=== PATIENT | female | born 1975 | race Caucasian/White ===

== ENCOUNTER 2023-01-16 08:27 | Day surgery (SDC) | payer BC, OTHER ==
[~2023-01-16] VITALS: Ht 154.9 cm; Wt 50.8 kg
[~2023-01-16 08:27] MED LIST: CVS1CAP2 PO; NS 1,000 ML IV ONE
[2023-01-16] MEDS ORDERED: propofoL 200 MG/20 ML VIAL As Ordered ONE ×3 (09:42→10:07)
[2023-01-16 10:23] VITALS: TEMP 98.3
[2023-01-16 10:38] VITALS: BP 117/64; O2SAT 100
== END 2023-01-16 10:45 | disposition home or self-care (01) ==
LOC: M OPP 08:27
PROVIDERS: ATTEND Internal Medicine Gastroenterology
DX: Z12.11 Encounter for screening for malignant neoplasm of colon (principal); Q43.8 Other specified congenital malformations of intestine; K64.8 Other hemorrhoids; Z79.899 Other long term (current) drug therapy; Z80.3 Family history of malignant neoplasm of breast; Z80.42 Family history of malignant neoplasm of prostate; Z80.0 Family history of malignant neoplasm of digestive organs